=== PATIENT | female | born 1955 | race Caucasian/White ===

== ENCOUNTER 2019-12-24 12:33 | Outpatient (CLI) | payer OTHER, SELFPAY ==
--- NOTE | 2019-12-24 12:36 | ECG_ITS ---
Measurements Intervals [place] Rate: 72 P: 60 IA: 176 QRS: 22 QRSD: 129 T: 41 QT: 417 QTc: 458 Interpretive Statements SINUS RHYTHM RIGHT BUNDLE BRANCH BLOCK BASELINE WANDER- I, II, III, AVL, AVF, V1-V2 ABNORMAL ECG Electronically Signed On 12-24-2019 12:59:36 CDT by Marv Woodard D.O.
== END 2019-12-24 12:34 | disposition home or self-care (01) ==
LOC: ANHSURGERY 12:36
PROVIDERS: PCP Family Medicine; Visit Provider Obstetrics & Gynecology
DX: I10 Essential (primary) hypertension (principal); Z01.812 Encounter for preprocedural laboratory examination; I45.10 Unspecified right bundle-branch block
CPT/HCPCS: 93005

== ENCOUNTER 2019-12-30 00:57 | Outpatient (CLI) | payer OTHER, SELFPAY ==
[2019-12-30 16:32] LABS: SARS-CoV-2 RNA PCR Negative
== END 2019-12-30 00:58 | disposition home or self-care (01) ==
LOC: ANHCOVIDDT 00:57
PROVIDERS: PCP Family Medicine; Visit Provider Obstetrics & Gynecology
DX: Z01.812 Encounter for preprocedural laboratory examination (principal); Z20.828 Contact with and (suspected) exposure to other viral communicable diseases
CPT/HCPCS: 87635; C9803; U0003

== ENCOUNTER 2020-01-01 00:40 | Day surgery (SDC) | payer OTHER, SELFPAY ==
[2019-12-16 12:56] VITALS: BMI 61.6
--- NOTE | 2019-12-31 14:25 | WPDANESEPPF ---
Anes - Initial Pre Proc Eval Procedure: Operation Date: 01/01/20 07:30 Proposed Procedures p Hysteroscopy, Dilation and Curettage - Warren Leigh MD Date/Time: 12/31/19 14:25 Surgeon: Warren Leigh MD Pre Op Diagnosis: post menopausal bleeding Patient Data Age: 64 Gender: F Height: 1.68 m Weight: 173.27 kg Allergies Allergy/AdvReac Type Severity Reaction Status Date / Time No Known Allergies Allergy Verified 12/16/19 12:56 Home Medications Medication Instructions Recorded Confirmed Type atenolol 50 mg PO QPM 12/16/19 12/16/19 History calcium carbonate-vitamin D3 1 cap PO DAILY 12/16/19 12/16/19 History [Calcium 600 + D(3)] cetirizine [Zyrtec] 10 mg PO DAILY 12/16/19 12/16/19 History multivitamin 1 tablet PO DAILY 12/16/19 12/16/19 History simvastatin 10 mg PO DAILY 12/16/19 12/16/19 History Patient hx anesthesia problems: none Family hx anesthesia problems: none [facility] Past Medical History Medical History (Updated 12/31/19 @ 14:26 by Ad Wagoner MD) HTN (hypertension) Hypercholesterolemia Migraine Morbid obesity with BMI of 60.0-69.9, adult Social History Social History Smoking status: Never smoker Spiritual care concerns: No Anes - Eval Final PreProcedure Day of Procedure 12/31/19 14:25 Patient weight: super morbidly obese Heart: regular rate and rhythm Lungs: clear to auscultation and normal air movement Airway: Mallampati scale class II Neurological: alert and oriented Last oral intake: >/= 8 hours ASA classification: III Emergent: no Anesthetic plan: proceed Anesthesia type and monitoring: general LMA and ETT Informed Consent: The patient's anesthetic plan and its attendant risks and benefits were discussed with the patient/family/POA. Questions were solicited and answers provided to the satisfaction of the patient/family/POA.
[2020-01-01 06:51] VITALS: BP 171/86; PULSE 72; TEMP 36.5; O2SAT 95
[2020-01-01] MEDS: ACETAMINOPHEN 500 MG TABLET 1000 MG PO (06:56)
[2020-01-01] MEDS: LACTATED RINGERS 1,000 ML 30 ML IV CONT (06:56)
--- NOTE | 2020-01-01 07:27 | WPDHPUPDATE1 ---
History and Physical Update Update Date/Time: 01/01/20 07:27 History and Physical has been reviewed, including an updated exam of the patient. There are NO changes in the patient's condition. Risks, benefits, and alternatives have been discussed and questions answered. Patient agrees to proceed with procedure.
--- NOTE | 2020-01-01 08:18 | SUR.OPER ---
400ml ns in, 250ml ns out, aware.
[2020-01-01 08:26] VITALS: BP 140/83; PULSE 82; RESP 16; TEMP 36.1; O2SAT 96
[2020-01-01 08:40] VITALS: BP 133/88; PULSE 73; RESP 16; O2SAT 96
--- NOTE | 2020-01-01 08:49 | PM.PROC ---
Procedure Note - Detailed Date of procedure: 01/01/20 Pre-op diagnosis: post menopausal bleeding Abnormal uterine bleeding Post-op diagnosis: same Procedure performed: Hysteroscopy D&C Description of procedure: The patient was taken the operating room. She was prepped and draped in the dorsal lithotomy position after induction of mac anesthesia. A speculum was placed in the vagina. The cervix grasped with a tenaculum. The cervix was injected at 3 and 9:00 a.m. with 1% lidocaine. Cervix was dilated up to 1 cm. The hysteroscope was inserted the intrauterine cavity and the above findings were noted. A medium-size curette was then used to curettage all surfaces within the endometrial cavity. The endometrial curettings were collected on a Telfa. There were submitted to the pathology department. Hysteroscope was reinserted the intrauterine cavity to re-examine the endometrial surfaces. The hysteroscope was withdrawn. The tenaculum was removed. The speculum was removed. The patient tolerated the procedure well. She was taken recovery room stable condition. Sponge lap needle counts were correct x2. Anesthesia: MAC Surgeon: Warren Leigh MD Estimated blood loss (mL): 75 Drains: No Packing: No Pathology: yes Complications: No immediate complications Condition: stable Disposition: PACU Findings: There was some thickening of the endometrium. There was normal appearing vulva vagina and cervix.
[2020-01-01 08:55] VITALS: BP 131/74; PULSE 72; RESP 14; O2SAT 92
[2020-01-01 09:00] VITALS: BP 145/74; PULSE 71; RESP 14
[2020-01-01 09:30] VITALS: BP 129/79; PULSE 62; RESP 14
== END 2020-01-01 09:43 | disposition home or self-care (01) ==
PROVIDERS: PCP Family Medicine; Visit Provider Obstetrics & Gynecology
PROC: 0U5B8ZZ Destruction of Endometrium, Via Natural or Artificial Opening Endoscopic (ICD-10-PCS; CPT 58563; principal; 2020-01-01 07:30)
DX: N95.0 Postmenopausal bleeding (principal); N85.01 Benign endometrial hyperplasia; I10 Essential (primary) hypertension; E78.00 Pure hypercholesterolemia, unspecified; E66.01 Morbid (severe) obesity due to excess calories; Z68.44 Body mass index [BMI] 60.0-69.9, adult
CPT/HCPCS: 58558; 88305; A9270; J1100; J1885; J2250; J2405; J2704; J3010; J7120